=== PATIENT | female | born 1995 | race American Indian/Alaskan Native ===

== ENCOUNTER 2022-02-28 11:19 | Inpatient (IN) | payer OTHER ==
--- NOTE | 2022-02-28 12:34 | Ultrasound Report ---
ULTRASOUND ABDOMEN, LIMITED INDICATION / CLINICAL INFORMATION: ruq pain. COMPARISON: None available. FINDINGS: PANCREAS: Visualized portion shows no significant abnormality. LIVER: No significant abnormality. Normal hepatopedal blood flow in the main portal vein. GALLBLADDER: Cholelithiasis with gallbladder wall thickening measuring up to 5 mm.. BILE DUCTS: No significant abnormality. Common bile duct measures 3 mm. FREE FLUID: None. ADDITIONAL FINDINGS: None. IMPRESSION: 1. Cholelithiasis with gallbladder wall thickening. Findings are concerning for acute cholecystitis. Signer Name: Ba Garcia MD Signed: 02/28/2022 12:30 PM Workstation Name: [id number]
[2022-02-28] MEDS ORDERED: cefTRIAXone/NS 1 GM/50 ML 1 GM/50 ML BAG IV ONE (13:04)
[2022-02-28] MEDS ORDERED: SODIUM CHLORIDE 0.9% 1000 ML 1,000 ML IV ONE (13:04)
[2022-02-28] MEDS ORDERED: ONDANSETRON 4 MG/2 ML INJ IV ONE (13:04)
[2022-02-28] MEDS ORDERED: MORPHINE 4 MG/1 ML INJ IV ONE (13:04)
[2022-02-28 13:20] LABS: Hematocrit 41.3 % (30.3-42.9); Hemoglobin 13.8 gm/dl (10.1-14.3); Mean Corpuscular HGB Conc 34 % (30-34); Mean Corpuscular Volume 91 fl (79-97); Platelet Count 198 K/mm3 (140-440); Red Blood Count 4.55 M/mm3 (3.65-5.03); Red Cell Distribution Width 12.9 % (13.2-15.2)
[2022-02-28 13:25] LABS: Bilirubin,Urine NEG (Negative); Blood,Urine SM (Negative); Color,Urine Yellow (Yellow); Protein,Urine <15 mg/dL mg/dL (Negative)
[2022-02-28 13:26] LABS: Mucus,Urine FEW /HPF; Urobilinogen,Urine < 2 mg/dL (<2.0)
[2022-02-28 13:39] LABS: Alanine Aminotransferase 379 units/L (7-56); Albumin 4.7 g/dL (3.9-5); Blood Urea Nitrogen 9 mg/dL (7-17); Calcium 9.3 mg/dL (8.4-10.2); Hemolysis Index 5
--- NOTE | 2022-02-28 13:46 | Emergency Department Report ---
ED Abdominal Pain HPI - General Chief Complaint: Abdominal Pain Stated Complaint: GALLBLADDER ISSUES Time Seen by Provider: 02/28/22 13:04 Source: patient Mode of arrival: Ambulatory Limitations: No Limitations - History of Present Illness Initial Comments: She is a pleasant 26-year-old female that comes to the emergency room today with right upper quadrant pain and vomiting. She states that she has had this pain off and on for several weeks but usually gets at night and it is self-limiting. However in the last 2 days the pain has been unrelenting. She is now having associated vomiting. She went to an urgent care they gave her Zofran and sent her here to the ER for further evaluation. Patient is on no home medications. Patient does not have a primary care doctor. Patient has an allergy to penicillin, however she is gotten Zosyn and tolerated it fine. Next of kin is Stephen Rabago, her father -: Gradual, week(s) Location: [facility] Migration to: no migration Severity scale (0 -10): 4 Quality: aching Consistency: intermittent Improves With: nothing Worsens With: nothing Associated Symptoms: denies other symptoms, nausea, vomiting. denies: diarrhea, fever, chills, constipation, dysuria, hematemesis, hematochezia, melena, hematuria, anorexia, syncope - Related Data Allergies Allergy/AdvReac Type Severity Reaction Status Date / Time Penicillins Allergy Unknown Verified 02/28/22 13:42 ED Review of Systems ROS: Stated complaint: GALLBLADDER ISSUES Other details as noted in HPI Comment: All other systems reviewed and negative ED Past Medical Hx - Past Medical History Previous Medical History?: Yes Additional medical history: Exercise-induced asthma as a child - Surgical History Past Surgical History?: Yes Additional Surgical History: Tonsil and adenectomy, hernia repair as a child - Family History Family history: no significant - Social History Smoking Status: Current Every Day Smoker (Vapes only) Substance Use Type: Alcohol (Occasional), Marijuana ED Physical Exam - General Limitations: No Limitations General appearance: alert, in no apparent distress - Head Head exam: Present: atraumatic, normocephalic - Eye Eye exam: Present: normal appearance - ENT ENT exam: Present: mucous membranes moist - Neck Neck exam: Present: normal inspection - Respiratory Respiratory exam: Present: normal lung sounds bilaterally. Absent: respiratory distress - Cardiovascular Cardiovascular Exam: Present: regular rate, normal rhythm. Absent: systolic murmur, diastolic murmur, rubs, gallop - GI/Abdominal GI/Abdominal exam: Present: soft, tenderness (Right upper quadrant), normal bowel sounds - Extremities Exam Extremities exam: Present: normal inspection - Back Exam Back exam: Present: normal inspection - Neurological Exam Neurological exam: Present: alert, oriented X3 - Psychiatric Psychiatric exam: Present: normal affect, normal mood - Skin Skin exam: Present: warm, dry, intact, normal color. Absent: rash ED Course Vital Signs 02/28/22 02/28/22 11:26 13:52 Temperature 98.5 F Pulse Rate 66 Respiratory 12 Rate Blood Pressure 124/89 [Left] O2 Sat by Pulse 100 100 Oximetry - Reevaluation(s) Reevaluation #1: 02/28/22 15:14 Dr. Pyle has seen and evaluated patient. Patient n.p.o. for OR this evening. ED Medical Decision Making - Lab Data Result diagrams: 02/28/22 12:30 02/28/22 12:30 - Radiology Data Radiology results: report reviewed, image reviewed See imaging - Medical Decision Making Vital Signs 02/28/22 02/28/22 11:26 13:52 Temperature 98.5 F Pulse Rate 66 Respiratory 12 Rate Blood Pressure 124/89 [Left] O2 Sat by Pulse 100 100 Oximetry Lab Results 02/28/22 02/28/22 02/28/22 Range/Units 12:30 12:30 12:30 WBC 13.1 H (4.5-11.0) K/mm3 RBC 4.55 (3.65-5.03) M/mm3 Hgb 13.8 (10.1-14.3) gm/dl Hct 41.3 (30.3-42.9) % MCV 91 (79-97) fl MCH 31 (28-32) pg MCHC 34 (30-34) % RDW 12.9 L (13.2-15.2) % Plt Count 198 (140-440) K/mm3 Sodium 135 L (137-145) mmol/L Potassium 4.3 (3.6-5.0) mmol/L Chloride 97.5 L (98-107) mmol/L Carbon Dioxide 25 (22-30) mmol/L Anion Gap 17 mmol/L BUN 9 (7-17) mg/dL Creatinine 0.7 (0.6-1.2) mg/dL Estimated GFR > 60 ml/min BUN/Creatinine Ratio 13 % Glucose 77 (65-100) mg/dL Calcium 9.3 (8.4-10.2) mg/dL Total Bilirubin 1.30 H (0.1-1.2) mg/dL AST 374 H (5-40) units/L ALT 379 H (7-56) units/L Alkaline Phosphatase 144 H (35-129) units/L Total Protein 6.8 (6.3-8.2) g/dL Albumin 4.7 (3.9-5) g/dL Albumin/Globulin Ratio 2.2 % Lipase 14 (13-60) units/L HCG, Qual Negative (Negative) Urine Color (Yellow) Urine Turbidity (Clear) Urine pH (5.0-7.0) Ur Specific [place] (1.003-1.030) Urine Protein (Negative) mg/dL Urine Glucose (UA) (Negative) mg/dL Urine Ketones (Negative) mg/dL Urine Blood (Negative) Urine Nitrite (Negative) Urine Bilirubin (Negative) Urine Urobilinogen (<2.0) mg/dL Ur Leukocyte Esterase (Negative) Urine WBC (Auto) (0.0-6.0) /HPF Urine RBC (Auto) (0.0-6.0) /HPF U Epithel Cells (Auto) (0-13.0) /HPF Urine Mucus /HPF 02/28/22 Range/Units 12:53 WBC (4.5-11.0) K/mm3 RBC (3.65-5.03) M/mm3 Hgb (10.1-14.3) gm/dl Hct (30.3-42.9) % MCV (79-97) fl MCH (28-32) pg MCHC (30-34) % RDW (13.2-15.2) % Plt Count (140-440) K/mm3 Sodium (137-145) mmol/L Potassium (3.6-5.0) mmol/L Chloride (98-107) mmol/L Carbon Dioxide (22-30) mmol/L Anion Gap mmol/L BUN (7-17) mg/dL Creatinine (0.6-1.2) mg/dL Estimated GFR ml/min BUN/Creatinine Ratio % Glucose (65-100) mg/dL Calcium (8.4-10.2) mg/dL Total Bilirubin (0.1-1.2) mg/dL AST (5-40) units/L ALT (7-56) units/L Alkaline Phosphatase (35-129) units/L Total Protein (6.3-8.2) g/dL Albumin (3.9-5) g/dL Albumin/Globulin Ratio % Lipase (13-60) units/L HCG, Qual (Negative) Urine Color Yellow (Yellow) Urine Turbidity Clear (Clear) Urine pH 6.0 (5.0-7.0) Ur Specific [place] 1.015 (1.003-1.030) Urine Protein <15 mg/dl (Negative) mg/dL Urine Glucose (UA) Neg (Negative) mg/dL Urine Ketones 20 (Negative) mg/dL Urine Blood Sm (Negative) Urine Nitrite Neg (Negative) Urine Bilirubin Neg (Negative) Urine Urobilinogen < 2 (<2.0) mg/dL Ur Leukocyte Esterase Neg (Negative) Urine WBC (Auto) 5.0 (0.0-6.0) /HPF Urine RBC (Auto) 2.0 (0.0-6.0) /HPF U Epithel Cells (Auto) 1.0 (0-13.0) /HPF Urine Mucus Few /HPF Ultrasound noted. CT scan noted. Labs noted. Staffed with Dr. Schmitt Patient has received normal saline, Zofran, Zosyn, and morphine while in ER. Staffed with Dr. Pyle. Patient n.p.o. for OR. Patient updated on plan of care Will admit to [facility] per Dr. Pyle's request - Differential Diagnosis Rule out cholecystitis Critical care attestation.: If time is entered above; I have spent that time in minutes in the direct care of this critically ill patient, excluding procedure time. ED Disposition Clinical Impression: Cholecystitis Disposition: ADMITTED INPATIENT Is pt being admited?: Yes Does the pt Need Aspirin: No Condition: Stable Instructions: Abdominal Pain (ED) Time of Disposition: 15:17
[2022-02-28 14:05] LABS: BUN/Creatinine Ratio 13
--- NOTE | 2022-02-28 14:55 | Cat Scan Report ---
CT ABDOMEN AND PELVIS WITH INTRAVENOUS CONTRAST INDICATION / CLINICAL INFORMATION: Abdominal pain. TECHNIQUE: 100 cc Omnipaque [address] scans at this location are performed using CT d ose reduction for ALARA by means of automated exposure control. COMPARISON: Right upper quadrant ultrasound earlier today. FINDINGS: ABDOMEN: There is mild diffuse thickening of the gallbladder wall. No visible gallstones. The gallbla dder is not distended. The bile ducts are normal in caliber. The liver, spleen, pancreas, adrenal glands and kidneys are normal in appearance. There is no evidenc e of bowel obstruction, wall thickening or free air. No adenopathy is present. No acute vascular abno rmality is seen. The lung bases are clear. PELVIS: The distal ureters and urinary bladder are normal. There is a 2 cm mildly thick-walled right ovarian cyst with mild free fluid in the cul-de-sac. The uterus and left adnexa are unremarkable. The re is no evidence of appendicitis or diverticulitis. I do not identify a hernia. No acute osseous abn ormality is seen. IMPRESSION: 1. Mild diffuse nonspecific thickening of the gallbladder wall. 2. 2 cm corpus luteal cyst in the right ovary and mild free fluid in the cul-de-sac are physiologic f indings. Signer Name: Zay Ramos MD Signed: 02/28/2022 2:50 PM Workstation Name: [id number]
[2022-02-28] MEDS ORDERED: ACETAMINOPHEN 325 MG TAB PO PRN (15:23)
[2022-02-28] MEDS ORDERED: oxyCODONE /ACETAMINOPHEN 5-325MG TAB PO PRN (15:23)
[2022-02-28] MEDS ORDERED: ALBUTEROL 2.5 MG/3 ML NEBU IH PRN (15:23)
[2022-02-28] MEDS ORDERED: ONDANSETRON 4 MG/2 ML INJ IV PRN ×2 (15:23→17:00)
--- NOTE | 2022-02-28 15:23 | History and Physical Report ---
History of Present Illness Chief complaint: My stomach hurts History of present illness: 26 YO Female with No PMH presents ED for evaluation. Patient reports "my stomach hurts". Patient states that she experienced abdominal pain over the past 1 day with persistent and worsening symptoms over the same timeframe. Pat stacey states that pain is intermittent and has become progressively worse. Patient reports pain awaken her from sleep. Patient denies nausea, multiple episodes of vomiting. Patient transported to [facility] via private vehicle for further care and evaluation of the aforementioned symptoms. The patient was seen and evaluated emergency department. All lab and imaging studies reviewed. Patient with CT scan of the abdomen pelvis and was found to have evidence of acute cholecystitis, as well as systemic inflammatory response syndrome as well as abdominal pain. Patient admitted to medical floor due to increased risk of worsening symptoms after medical stabilization. Surgery team consulted in ED. Patient denies fever, chills, chest pain, palpitation, adductive cough, skin rash and recent contact, ingestion of food/water from new or different sources, known exposure to COVID-19. No prior admission for review. No medication listed at time of admission for reconciliation. Advanced care planning conducted in ED. Past History Past Surgical History: hernia repair, tonsillectomy Social history: single. denies: smoking, alcohol abuse, prescription drug abuse Family history: hypertension Medications and Allergies Allergies Allergy/AdvReac Type Severity Reaction Status Date / Time Penicillins Allergy Unknown Verified 02/28/22 13:42 Review of Systems Constitutional: no weight loss, no weight gain, no fever, no chills Ears, nose, mouth and throat: no ear pain, no tinnitis, no decreased hearing, no nasal congestion, no nasal discharge Breasts: no change in shape, no swelling, no mass Cardiovascular: no chest pain, no orthopnea, no palpitations, no rapid/irregular heart beat Respiratory: no cough, no cough with sputum, no shortness of breath, no dyspnea on exertion Gastrointestinal: abdominal pain, nausea, vomiting, no diarrhea, no constipation, no hematemesis, no coffee ground emesis, no BRBPR, no melena, no hematochezia, no loss of appetite Genitourinary Female: no pelvic pain, no flank pain, no dysuria, no urinary frequency, no urgency Rectal: no pain, no incontinence, no bleeding Musculoskeletal: no neck stiffness, no neck pain, no shooting arm pain, no arm numbness/tingling, no shooting leg pain Integumentary: no rash, no pruritis, no redness, no wounds, no jaundice, no boils, no blisters Neurological: no head injury, no transient paralysis, no paralysis, no weakness, no numbness, no tingling, no syncope, no ataxia, no lack of coordination Psychiatric: no anxiety, no memory loss, no insomnia, no hypersomnia, no change in libido, no suicidal ideation Endocrine: no cold intolerance, no polyphagia, no excessive thirst, no polyuria Hematologic/Lymphatic: no easy bruising, no easy bleeding Allergic/Immunologic: no urticaria, no allergic rhinitis, no wheezing Exam - Constitutional Vitals: Temp Pulse Resp BP Pulse Ox 98.5 F 66 12 124/89 100 02/28/22 11:26 02/28/22 11:26 02/28/22 11:02/28/22 11:02/28/22 13:52 General appearance: Present: mild distress - EENT Eyes: Present: PERRL ENT: hearing intact, clear oral mucosa - Neck Neck: Present: supple, normal ROM - Respiratory Respiratory effort: normal Respiratory: bilateral: CTA - Cardiovascular Heart Sounds: Present: S1 & S2. Absent: rub, click - Extremities Extremities: pulses symmetrical, No edema Peripheral Pulses: within normal limits - Abdominal General gastrointestinal: Present: soft, tender, non-distended, normal bowel sounds Localized gastrointestinal: tender: RUQ Female genitourinary: Present: normal - Integumentary Integumentary: Present: clear, warm, dry - Musculoskeletal Musculoskeletal: gait normal, strength equal bilaterally - Psychiatric Psychiatric: appropriate mood/affect, intact judgment & insight - Neurologic Neurologic: CNII-XII intact, moves all extremities Results - Labs CBC & Chem 7: 02/28/22 12:30 02/28/22 12:30 Labs: Abnormal lab results 02/28/22 02/28/22 Range/Units 12:30 12:30 WBC 13.1 H (4.5-11.0) K/mm3 RDW 12.9 L (13.2-15.2) % Sodium 135 L (137-145) mmol/L Chloride 97.5 L (98-107) mmol/L Total Bilirubin 1.30 H (0.1-1.2) mg/dL AST 374 H (5-40) units/L ALT 379 H (7-56) units/L Alkaline Phosphatase 144 H (35-129) units/L Assessment and Plan - Patient Problems (1) Acute cholecystitis Current Visit: Yes Status: Acute Plan to address problem: CT scan abdomen pelvis, IV fluid resuscitation therapy, bowel rest, surgery team consulted. Patient pending surgical intervention as per surgical team. (2) Abdominal pain Current Visit: Yes Status: Acute Plan to address problem: Pain control, supportive care, n.p.o., bowel rest. Serial abdominal exam. (3) SIRS (systemic inflammatory response syndrome) Current Visit: Yes Status: Acute Plan to address problem: CBC, CT scan abdomen pelvis, IV antibiotic therapy, supportive care. Repeat CBC in AM. (4) DVT prophylaxis Current Visit: Yes Status: Acute Plan to address problem: SCD to bilateral lower extremities while in bed (5) Advance care planning Current Visit: Yes Status: Acute Plan to address problem: Disease education data, care plan discussed, diagnoses discussed, prognosis discussed, patient knowledges understanding and agreement care plan, +30 minutes. (6) Preventative health care Current Visit: Yes Status: Acute Plan to address problem: Patient counseled regarding follow-up with primary care physician for all age and risk factor appropriate screening test. And follow-up with gynecology for all age and risk factor proper screening test. +30 minutes.
[2022-02-28] MEDS ORDERED: BUPIVACAINE/PF (0.5%) 5 MG/1 ML 30 ML VIAL INFILTRATI ONE (15:38)
[2022-02-28] MEDS ORDERED: LIDOCAINE-MPF (1%) 10 MG/1 ML VIAL 5 ML ONE (16:08)
[2022-02-28] MEDS ORDERED: BUPIVACAINE/PF (0.25%) 2.5 MG/ML 30 ML VIAL INFILTRATI ONE (16:09)
[2022-02-28] MEDS ORDERED: MIDAZOLAM 2 MG/2 ML INJ ONE (16:09)
[2022-02-28] MEDS ORDERED: fentaNYL 100 MCG/2 ML INJ ONE (16:09)
[2022-02-28] MEDS ORDERED: LIDOCAINE PF 100 MG/5 ML (CARDIAC SYRINGE) IV ONE (16:09)
[2022-02-28] MEDS ORDERED: ONDANSETRON 4 MG/2 ML INJ ONE (16:10)
[2022-02-28] MEDS ORDERED: propofoL 200 MG/20 ML VIAL IV ONE (16:10)
[2022-02-28] MEDS ORDERED: ROCURONIUM 50 MG/5 ML INJ IV ONE (16:10)
[2022-02-28] MEDS ORDERED: dexAMETHasone 20 MG/5 ML VIAL ONE (16:10)
--- NOTE | 2022-02-28 16:12 | Consultation ---
History of Present Illness Consult date: 02/28/22 Reason for consult: gallstones Chief complaint: abd pain - History of present illness History of present illness: 26-year-old female with no past medical history presents to the emergency room with constant, unrelenting right upper quadrant abdominal pain. The pain does not radiate. The pain is sharp. The patient states she has had multiple episodes in the past, usually in the middle of the night. However the pain usually resolves after a few hours. The pain wakes her from sleep. She does not associated this with any particular foods but states she does usually eat late in the evening. No fevers or chills. This episode was associated with nausea and nonbilious/nonbloody emesis. No chest pain or shortness of breath. Past History Past Medical History: No medical history Past Surgical History: hernia repair, tonsillectomy Social history: smoking (vape), alcohol abuse (Social) Family history: no significant family history Medications and Allergies Allergies Allergy/AdvReac Type Severity Reaction Status Date / Time Penicillins Allergy Unknown Verified 02/28/22 13:42 Active Meds: Active Medications Acetaminophen (Acetaminophen 325 Mg Tab) 650 mg PO Q4H PRN PRN Reason: Pain MILD(1-3)/Fever >100.5/LARSEN Albuterol (Albuterol 2.5 Mg/3 Ml Nebu) 2.5 mg IH Q4HRT PRN PRN Reason: Shortness Of Breath Hydromorphone HCl (Hydromorphone 0.5 Mg/0.5 Ml Inj) 0.5 mg IV Q3H PRN PRN Reason: Pain , Severe (7-10) Sodium Chloride (Nacl 0.9% 1000 Ml) 1,000 mls @ 125 mls/hr IV DIRECT LARRY Ondansetron HCl (Ondansetron 4 Mg/2 Ml Inj) 4 mg IV Q8H PRN PRN Reason: Nausea And Vomiting Oxycodone/Acetaminophen (Oxycodone /Acetaminophen 5-325mg Tab) 1 tab PO Q6H PRN PRN Reason: Pain, Moderate (4-6) Sodium Chloride (Sodium Chloride 0.9% 10 Ml Flush Syringe) 10 ml IV BID LARRY Sodium Chloride (Sodium Chloride 0.9% 10 Ml Flush Syringe) 10 ml IV PRN PRN PRN Reason: LINE FLUSH Review of Systems All systems: negative (10 point ROS performed and negative except for that listed in HPI) Exam Vital Signs Temp Pulse Resp BP Pulse Ox 98.5 F 66 12 124/89 100 02/28/22 11:02/28/22 11:02/28/22 11:02/28/22 11:02/28/22 11:26 Narrative exam: Gen.: Awake, alert, oriented x3. No apparent distress ENT: Trachea midline. No lymphadenopathy. No scleral icterus or conjunctival pallor CV: S1, S2 present Respiratory: No audible wheezes Abdomen: Soft, nondistended, mild RUQ TTP. No rebound, rigidity, guarding Extremities: No clubbing, cyanosis, edema Results - Labs 02/28/22 12:30 02/28/22 12:30 Abnormal lab results 02/28/22 02/28/22 Range/Units 12:30 12:30 WBC 13.1 H (4.5-11.0) K/mm3 RDW 12.9 L (13.2-15.2) % Sodium 135 L (137-145) mmol/L Chloride 97.5 L (98-107) mmol/L Total Bilirubin 1.30 H (0.1-1.2) mg/dL AST 374 H (5-40) units/L ALT 379 H (7-56) units/L Alkaline Phosphatase 144 H (35-129) units/L Diabetes panel 02/28/22 Range/Units 12:30 Sodium 135 L (137-145) mmol/L Potassium 4.3 (3.6-5.0) mmol/L Chloride 97.5 L (98-107) mmol/L Carbon Dioxide 25 (22-30) mmol/L BUN 9 (7-17) mg/dL Creatinine 0.7 (0.6-1.2) mg/dL Glucose 77 (65-100) mg/dL Calcium 9.3 (8.4-10.2) mg/dL AST 374 H (5-40) units/L ALT 379 H (7-56) units/L Alkaline Phosphatase 144 H (35-129) units/L Total Protein 6.8 (6.3-8.2) g/dL Albumin 4.7 (3.9-5) g/dL Calcium panel 02/28/22 Range/Units 12:30 Calcium 9.3 (8.4-10.2) mg/dL Albumin 4.7 (3.9-5) g/dL Pituitary panel 02/28/22 Range/Units 12:30 Sodium 135 L (137-145) mmol/L Potassium 4.3 (3.6-5.0) mmol/L Chloride 97.5 L (98-107) mmol/L Carbon Dioxide 25 (22-30) mmol/L BUN 9 (7-17) mg/dL Creatinine 0.7 (0.6-1.2) mg/dL Glucose 77 (65-100) mg/dL Calcium 9.3 (8.4-10.2) mg/dL Adrenal panel 02/28/22 Range/Units 12:30 Sodium 135 L (137-145) mmol/L Potassium 4.3 (3.6-5.0) mmol/L Chloride 97.5 L (98-107) mmol/L Carbon Dioxide 25 (22-30) mmol/L BUN 9 (7-17) mg/dL Creatinine 0.7 (0.6-1.2) mg/dL Glucose 77 (65-100) mg/dL Calcium 9.3 (8.4-10.2) mg/dL Total Bilirubin 1.30 H (0.1-1.2) mg/dL AST 374 H (5-40) units/L ALT 379 H (7-56) units/L Alkaline Phosphatase 144 H (35-129) units/L Total Protein 6.8 (6.3-8.2) g/dL Albumin 4.7 (3.9-5) g/dL - Imaging CT scan - abdomen: report reviewed, image reviewed CT scan - pelvis: report reviewed, image reviewed US - abdomen: report reviewed, image reviewed Assessment and Plan 26-year-old female with acute cholecystitis Plan: 1. NPO 2. IVF 3. IV abx 4. DVT ppx 5. prn pain and nausea control 6. Recommend cholecystectomy with IOC. I discussed all risks, benefits, alternatives to surgery with the patient. All questions answered and consent obtained. Will add to the OR schedule for today. Thank you for this consultation. Please call with any questions or concerns.
--- NOTE | 2022-02-28 16:26 | Anesthesia Day of Surgery ---
Anesthesia Day of Surgery - Day of Surgery Patient Examined: Yes Patient H&P Reviewed: Yes Patient is NPO: Yes
--- NOTE | 2022-02-28 16:26 | Anesthesia Consultation ---
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
[2022-02-28] MEDS ORDERED: SODIUM CHLORIDE 0.9% 100 ML ONE (16:56)
[2022-02-28] MEDS ORDERED: HYDROmorphone 0.5 MG/0.5 ML INJ IV PRN (17:00)
[2022-02-28] MEDS ORDERED: LIDOCAINE (1%) 10 MG/1 ML VIAL 20 ML MDV INFILTRATI ONE (17:14)
[2022-02-28] MEDS ORDERED: BUPIVACAINE/PF (0.5%) 5 MG/1 ML 10 ML VIAL INFILTRATI ONE (17:15)
[2022-02-28] MEDS ORDERED: NEOSTIGMINE 10MG/10 ML INJ MDV ONE (17:22)
[2022-02-28] MEDS ORDERED: GLYCOPYRROLATE 0.4 MG/2 ML INJ ONE (17:22)
--- NOTE | 2022-02-28 17:24 | Operative Report ---
Operative Report Operative Report: Date of operation: 02/28/2022 Preoperative diagnosis: Acute cholecystitis postOperative diagnoses: Same as above Procedure performed: Laparoscopic cholecystectomy with IOC Surgeon: Yue Pyle DO Sample Examiner: MD Jasiel Anesthesia: Gen. endotracheal anesthesia, local Findings: Mildly distended gallbladder with minimal pericholecystic fluid. Normal cholangiogram Specimen: Gallbladder Estimated blood loss: <5cc Complications: None Disposition: Stable to PACU HPI an indication: 26-year-old female who presented to the emergency room with complaints of constant sharp right upper quadrant abdominal pain associated with nausea and vomiting. Work-up revealed a leukocytosis and acute cholecystitis. The patient was admitted and started on IV fluids, kept n.p.o., IV antibiotics. It was recommended that she undergo cholecystectomy with IOC. Liver function tests were elevated as well. All risks, benefits, alternatives to surgery were discussed in detail and questions answered. Consent was obtained for laparoscopic, possible open cholecystectomy, cholangiogram. Procedure in detail: The patient was identified in the preoperative area and taken back to the operating room, placed on the operating room table in supine position. After anesthesia was induced, the abdomen was prepped and draped in usual sterile fashion and timeout was performed. Local anesthetic was infiltrated into all of the skin incision sites. A supraumbilical incision was made through which a Veress needle was inserted. The Veress needle position was confirmed using the saline drop test and the abdomen insufflated to 15 mmHg without incident. The Veress needle was then removed and a 5 mm Optiview trocar placed through this incision. The patient was then placed into reverse Trendelberg and tilted to the left. 12 mm subxiphoid, 5 mm right lateral, and 5 mm right upper quadrant trocar was placed under direct visualization. The gallbladder was mildly distended and was retracted cephalad and above the liver. The cystic duct and artery were carefully skeletonized. The medial and lateral peritoneal attachments to the gallbladder were dissected using a combination of blunt dissection with the [place] and hook electrocautery. The cystic duct and artery were the only 2 structures seen entering the gallbladder and the critical view was successfully obtained. 2 clips were placed on the proximal aspect of the cystic artery and 1 distally this was transected in between the clips using EndoShears. 1 clip was placed on the distal aspect of the cystic duct and a ductotomy created just proximal to this using EndoShears. The cholangiogram catheter was inserted through the cystic duct and secured using an Berman clamp. Injectable saline was first injected into the cystic duct without resistance or leakage. A 50-50 mixture of Omnipaque and injectable saline was then used to perform the cholangiogram. There was immediate filling of the cystic duct, common bile duct, duodenum, intrahepatic ducts without filling defect seen. The cholangiogram was normal. The cholangiogram catheter was removed and the g allbladder retracted. 3 clips were placed on the proximal aspect of the cystic duct and the duct transected in between the clips using EndoShears. The gallbladder was dissected from the liver bed using electrocautery. The gallbladder was placed into a Endo Catch bag and removed from the abdomen via the 12mm port. The gallbladder fossa was then inspected and there was no identifiable bleeding or bile leakage. Hemostasis was ensured. The clips on the cystic duct and artery were visualized and intact. The patient was then placed into neutral position. The 12 mm port fascia was closed with interrupted 0 Vicryl suture using the Sudarshan Britton device. The remaining ports were removed under direct visualization. Skin incisions were closed with 4-0 Monocryl subcuticular stitches and skin glue. All skin incisions were once again infiltrated with local anesthetic. At the end case all sponge, instrument, sharp counts were correct 2. The patient was awoken from anesthesia, extubated, and taken to PACU in stable condition.
[2022-02-28] MEDS ORDERED: LIDOCAINE-MPF (1%) 10 MG/1 ML VIAL 5 ML INFILTRATI ONE (17:27)
--- NOTE | 2022-02-28 18:09 | Post Anesthesia Evaluation ---
- Post Anesthesia Evaluation Patient Participated: Yes Airway Patent: Yes Stable Respiratory Function: Yes Nausea/Vomiting: No Temp > 96.8F: Yes Pain Manageable: Yes Adequeate Hydration: Yes Anesthesia Complications: No
--- NOTE | 2022-02-28 19:07 | Fluoroscopy Report ---
Intraoperative cholangiogram Indication: Intraoperative biliary evaluation. Findings: Normal filling of the CBD with contrast spill into the duodenum. No obstructive stone dis ease. Impression: Unremarkable exam. Fluoroscopic time: 0.3 minutes Number of images: 1 Signer Name: Kenny Moya MD Signed: 02/28/2022 7:03 PM Workstation Name: [id number]
[2022-02-28] MEDS: HYDROmorphone 0.5 MG/0.5 ML INJ IV PRN (20:55)
[2022-02-28] MEDS: SODIUM CHLORIDE 0.9% 1000 ML 1,000 ML IV SCH (23:34)
[2022-03-01] MEDS: HYDROmorphone 0.5 MG/0.5 ML INJ IV PRN ×2 (00:56→05:28)
[2022-03-01 06:06] LABS: Basophils % (Auto) 0.1 % (0.0-1.8); Hematocrit 38.4 % (30.3-42.9); Hemoglobin 12.7 gm/dl (10.1-14.3); Lymphocytes # (Auto) 0.9 K/mm3 (1.2-5.4); Lymphocytes % (Auto) 6.8 % (13.4-35.0); Mean Corpuscular HGB Conc 33 % (30-34); Mean Corpuscular Volume 91 fl (79-97); Monocytes # (Auto) 0.4 K/mm3 (0.0-0.8); Monocytes % (Auto) 3.5 % (0.0-7.3); Platelet Count 171 K/mm3 (140-440); Red Blood Count 4.22 M/mm3 (3.65-5.03); Red Cell Distribution Width 12.8 % (13.2-15.2)
[2022-03-01 06:07] LABS: Alanine Aminotransferase 228 units/L (7-56); Albumin 3.8 g/dL (3.9-5); Bilirubin,Direct 0.2 mg/dL (0-0.2); Blood Urea Nitrogen 6 mg/dL (7-17); Calcium 8.8 mg/dL (8.4-10.2); Hemolysis Index 2
[2022-03-01 06:16] LABS: BUN/Creatinine Ratio 9
[2022-03-01] MEDS: SODIUM CHLORIDE 0.9% 1000 ML 1,000 ML IV SCH (06:46)
[2022-03-01] MEDS ORDERED: oxyCODONE /ACETAMINOPHEN 5-325MG TAB PO PRN (10:00)
--- NOTE | 2022-03-01 10:48 | Discharge Summary ---
Providers - Providers Date of Admission: 02/28/22 15:23 Date of discharge: 03/01/22 Attending physician: WENDY MCCARTHY MD Primary care physician: TAHIR MITCHELL Hospitalization Reason for admission: Acute cholecystitis Condition: Stable Hospital course: Patient is a 26-year-old female who presented with abdominal pain x1 day. Labs were significant for elevated total bilirubin, AST and ALT. CT of the abdomen pelvis showed mild diffuse nonspecific thickening of the gallbladder wall. Abdominal ultrasound showed cholelithiasis with gallbladder wall thickening concerning for acute cholecystitis. General surgery was consulted and laparoscopic cholecystectomy was performed on 02/28. Postoperatively the patient was stable and discharged with instructions to follow-up with the surgeon in 2 weeks. Disposition: 01 HOME / SELF CARE / HOMELESS Final Discharge Diagnosis (Prints w/discharge instructions): Sepsis secondary to acute cholecystitis. Abdominal pain Time spent for discharge: 30 minutes Core Measure Documentation - Palliative Care Palliative Care/ Comfort Measures: Not Applicable - Core Measures Any of the following diagnoses?: none Exam - Physical Exam Narrative exam: GENERAL: Well-developed well-nourished. In no acute distress. HEENT: Normocephalic. Atraumatic. NECK: Supple. CHEST/LUNGS: CTAB on room air HEART/CARDIOVASCULAR: RRR. No murmur, rubs or gallops appreciated. ABDOMEN: Surgical scars with glue intact. +BS. ND. Mildly TTP. SKIN: No rashes noted. NEURO: No focal motor deficit. Follows all commands. MUSCULOSKELETAL: No joint effusion EXTREMITIES: No cyanosis, clubbing or edema. PSYCH: Cooperative. - Constitutional Vitals: Temp Pulse Resp BP Pulse Ox 97.7 F 55 L 20 120/76 93 03/01/22 06:02 03/01/22 06:02 03/01/22 06:02 03/01/22 06:02 03/01/22 06:02 Plan Care Plan Goals: Please follow-up with Dr. Araya in surgery clinic in 2 weeks. Afebrile notice worsening abdominal pain, pus draining from your wounds or your wounds opening please return to the ED. Follow up with: TAHIR MITCHELL MD [Primary Care Provider] - 3-5 Days SALLIE ARAYA DO [Staff Physician] - 14 Days Prescriptions: oxyCODONE /ACETAMINOPHEN [Percocet 5/325 mg] 1 tab PO Q4H PRN 3 Days #18 tablet PRN Reason: Pain, Moderate (4-6)
[2022-03-01 11:30] VITALS: BP 110/71
[2022-03-01] MEDS ORDERED: KETOROLAC 10 MG TAB PO STA (13:28)
--- NOTE | 2022-03-01 14:04 | Progress Note ---
Assessment and Plan 26-year-old female status post laparoscopic cholecystectomy with IOC, POD 1 Patient stable. LFTs and bilirubin trending down. Plan: 1. Regular diet 2. prn PO pain control 3. OOB/ambulate 4. IS/pulm toilet 5. Cleared for discharge from surgery standpoint. Verbal discharge instructions provided to patient. Instructed to stay out of work for the next 5 to 7 days. Instructed to make an appointment to follow-up in the surgery clinic in 2 weeks. Thank you for this consultation. Please call with any questions or concerns. Subjective Date of service: 03/01/22 Narrative: Patient seen and examined. Complains of abdominal soreness. She is tolerating a diet. No fevers or chills. No nausea or vomiting. Objective Vital Signs - 12hr 03/01/22 03/01/22 03/01/22 06:02 10:00 11:11 Temperature 97.7 F 98.3 F Pulse Rate 55 L 51 L Respiratory 20 20 Rate Blood Pressure 120/76 110/71 O2 Sat by Pulse 93 98 97 Oximetry - General physical appearance Narrative Exam: Gen.: Awake, alert, oriented x3. No apparent distress ENT: Trachea midline. No lymphadenopathy. No scleral icterus or conjunctival pallor CV: S1, S2 present Respiratory: No audible wheezes Extremities: No clubbing, cyanosis, edema - Labs 03/01/22 05:02 03/01/22 05:02 Diabetes panel 02/28/22 03/01/22 Range/Units 12:30 05:02 Sodium 136 L (137-145) mmol/L Potassium 4.6 (3.6-5.0) mmol/L Chloride 101.2 (98-107) mmol/L Carbon Dioxide 25 (22-30) mmol/L BUN 6 L (7-17) mg/dL Creatinine 0.7 0.7 (0.6-1.2) mg/dL Glucose 95 (65-100) mg/dL Calcium 8.8 (8.4-10.2) mg/dL AST 113 H (5-40) units/L ALT 228 H (7-56) units/L Alkaline Phosphatase 117 (35-129) units/L Total Protein 5.7 L (6.3-8.2) g/dL Albumin 3.8 L (3.9-5) g/dL Calcium panel 03/01/22 Range/Units 05:02 Calcium 8.8 (8.4-10.2) mg/dL Albumin 3.8 L (3.9-5) g/dL Pituitary panel 02/28/22 03/01/22 Range/Units 12:30 05:02 Sodium 136 L (137-145) mmol/L Potassium 4.6 (3.6-5.0) mmol/L Chloride 101.2 (98-107) mmol/L Carbon Dioxide 25 (22-30) mmol/L BUN 6 L (7-17) mg/dL Creatinine 0.7 0.7 (0.6-1.2) mg/dL Glucose 95 (65-100) mg/dL Calcium 8.8 (8.4-10.2) mg/dL Adrenal panel 02/28/22 03/01/22 Range/Units 12:30 05:02 Sodium 136 L (137-145) mmol/L Potassium 4.6 (3.6-5.0) mmol/L Chloride 101.2 (98-107) mmol/L Carbon Dioxide 25 (22-30) mmol/L BUN 6 L (7-17) mg/dL Creatinine 0.7 0.7 (0.6-1.2) mg/dL Glucose 95 (65-100) mg/dL Calcium 8.8 (8.4-10.2) mg/dL Total Bilirubin 0.80 (0.1-1.2) mg/dL AST 113 H (5-40) units/L ALT 228 H (7-56) units/L Alkaline Phosphatase 117 (35-129) units/L Total Protein 5.7 L (6.3-8.2) g/dL Albumin 3.8 L (3.9-5) g/dL
--- NOTE | 2022-03-01 14:30 | Post Anesthesia Evaluation ---
- Post Anesthesia Evaluation Patient Participated: Yes Airway Patent: Yes Stable Respiratory Function: Yes Nausea/Vomiting: No Temp > 96.8F: Yes Pain Manageable: Yes Adequeate Hydration: Yes Anesthesia Complications: No Patient on Ventilator: No
== END 2022-03-01 14:05 | disposition home or self-care (01) | DRG 854 ==
LOC: ED 11:19 → 3A 15:23
PROVIDERS: ADMIT Internal Medicine; ATTEND Student in an Organized Health Care Education/Training Program
PROC: 0FT44ZZ Resection of Gallbladder, Percutaneous Endoscopic Approach (ICD-10-PCS; principal; 2022-02-28)
PROC: BF131ZZ Fluoroscopy of Gallbladder and Bile Ducts using Low Osmolar Contrast (ICD-10-PCS; 2022-02-28)
DX: A41.9 Sepsis, unspecified organism (principal); K81.0 Acute cholecystitis; Z82.49 Family history of ischemic heart disease and other diseases of the circulatory system; Z88.0 Allergy status to penicillin
CPT/HCPCS: 36415; 74177; 74300; 76705; 80048; 80053; 80076; 81001; 83690; 84703; 85025; 85027; 88304; 99285; G0378; J1815; J3490; J0696; J1100; J1170; J2001; J2250; J2270; J2405; J2704; J2710; J3010; J7030; Q9967